=== PATIENT | male | born 2005 | race Caucasian/White ===

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

== ENCOUNTER 2023-11-25 06:13 | Emergency (ER) | payer BC, SELFPAY ==
[~2023-11-25] VITALS: Ht 180.3 cm; Wt 116.9 kg
[2023-11-25] MEDS ORDERED: AMOX875T PO (06:51)
[2023-11-25] MEDS: ARTICAINE HCL/EPINEPHRINE 4%-1:200,000 1.7ML INJ (SEPTOCAINE) SM ONE (06:55)
[2023-11-25] MEDS ORDERED: PERI0.126 PO (06:55)
[2023-11-25 07:31] VITALS: BP 118/76; TEMP 97.5; O2SAT 97
== END 2023-11-25 07:35 | disposition home or self-care (01) ==
LOC: M ED 06:13
DX: K02.9 Dental caries, unspecified (principal); K08.89 Other specified disorders of teeth and supporting structures; F12.10 Cannabis abuse, uncomplicated; F17.200 Nicotine dependence, unspecified, uncomplicated; F10.10 Alcohol abuse, uncomplicated; Z79.2 Long term (current) use of antibiotics; Z79.899 Other long term (current) drug therapy

== ENCOUNTER → 2024-05-26 | Outpatient (CLI) | payer BC ==
[~2024-05-26] MED LIST changes: +AMOX875T PO; +PERI0.126 PO
== END ==
LOC: M EKG 15:23
PROVIDERS: ATTEND Family Medicine
DX: R00.2 Palpitations (principal); Z53.9 Procedure and treatment not carried out, unspecified reason

== ENCOUNTER → 2025-05-31 | Outpatient (REF) | payer BC ==
[2025-05-31 18:21] LABS: APPEARANCE, URINE CLEAR (CLEAR); BACTERIA, URINE AUTO NEGATIVE (NEGATIVE); BILIRUBIN, URINE AUTO NEGATIVE (NEGATIVE); BLOOD, URINE BLOOD 1+ (NEGATIVE); GLUCOSE, URINE (UA) AUTO NEGATIVE (NEGATIVE); KETONE, URINE AUTO 2+ mg/dL (NEGATIVE); LEUKOCYTE ESTERASE, URINE AUTO NEGATIVE (NEGATIVE); MUCUS, URINE SMALL (NEGATIVE); NITRITE, URINE AUTO NEGATIVE (NEGATIVE); PROTEIN, URINE AUTO NEGATIVE (NEGATIVE); RBC, URINE AUTO 2 /HPF (0-3); SPECIFIC GRAVITY URINE AUTO 1.028 (1.002-1.035); SQUAMOUS EPITHELIAL CELL UR AU 0 /HPF (0-6); UROBILINOGEN, URINE AUTO 2.0 mg/dL (0.0-2.0); WBC, URINE AUTO 1 /HPF (0-3)
== END ==
LOC: M LAB REF 17:19
PROVIDERS: ATTEND Physician Assistant Medical
DX: N39.0 Urinary tract infection, site not specified (principal)

== ENCOUNTER 2025-09-21 10:54 | Day surgery (SDC) | payer OTHER ==
[~2025-09-21] VITALS: Ht 180.3 cm; Wt 57.9 kg
[2025-09-21 12:20] VITALS: TEMP 98.4
[2025-09-21] MEDS ORDERED: GLYCOPYRROLATE INJ 0.2 MG/ML 2 ML VIAL As Ordered ONE (12:20)
[2025-09-21] MEDS ORDERED: LIDOCAINE 2% 100 MG/5 ML SDV (FOR ANES.) As Ordered ONE (12:20)
[2025-09-21 12:44] VITALS: BP 119/71; O2SAT 97
== END 2025-09-21 12:48 | disposition home or self-care (01) ==
LOC: M OPP 10:54
PROVIDERS: ATTEND Surgery
DX: K63.5 Polyp of colon (principal); R63.4 Abnormal weight loss; J45.909 Unspecified asthma, uncomplicated; F17.290 Nicotine dependence, other tobacco product, uncomplicated
CPT/HCPCS: 43235; 45380; 88305; J1596